=== PATIENT | female | born 1965 | race Caucasian/White ===

== ENCOUNTER → 2018-03-08 15:10 | Outpatient (CLI) | payer OTHER, SELFPAY ==
[2018-03-08 18:27] LABS: Estradiol 43.1 pg/mL
== END ==
PROVIDERS: Visit Provider Obstetrics & Gynecology
DX: N93.8 Other specified abnormal uterine and vaginal bleeding (principal)
CPT/HCPCS: 36415; 82670; 84144

== ENCOUNTER → 2018-06-27 17:22 | Outpatient (CLI) | payer OTHER, SELFPAY ==
[2018-06-27 18:08] LABS: Estradiol 134.1 pg/mL; Follicle Stimulating Hormone 3.5 mIU/mL
[2018-07-12 08:29] LABS: HPV Reflexed? NOT INDICATED
== END ==
PROVIDERS: Visit Provider Obstetrics & Gynecology
DX: N95.1 Menopausal and female climacteric states (principal); Z12.4 Encounter for screening for malignant neoplasm of cervix
CPT/HCPCS: 82670; 83001; 84144; 88175; G0145

== ENCOUNTER 2018-07-20 10:54 | Emergency (ER) | payer OTHER, SELFPAY ==
[2018-07-20 10:57] VITALS: BP 163/88; PULSE 70; RESP 18; TEMP 36.9; O2SAT 98; BMI 30.9
--- NOTE | 2018-07-20 11:07 | CT_ITS ---
STUDY: CT CERVICAL SPINE WITHOUT CONTRAST REASON FOR EXAM: Female, 52 years old. Head trauma due to a fall. RADIATION DOSAGE (If Supplied By Facility): CTDIvol = ( 34.39 ) mGy, DLP = ( 767.73 ) mGycm TECHNIQUE: High resolution transaxial imaging was performed without contrast material. Sagittal and coronal images were reconstructed. Individualized dose optimization techniques were used for this CT. COMPARISON: None FINDINGS: Normal craniovertebral junction. Normal anterior atlantoaxial articulation. Normal odontoid process. There is straightening of the normal cervical lordosis. Normal vertebral bodies and posterior osseous elements. C2-3: Normal endplates. Normal disc height and morphology. Normal central canal and intervertebral neuroforamina. C3-4: Normal endplates. Normal disc height and morphology. Normal central canal and intervertebral neuroforamina. C4-5: Moderate degree of disc space narrowing. Uncovertebral arthrosis. Bilateral neural foraminal stenosis. C5-6: Moderate degree of disc space narrowing. Uncovertebral arthrosis with posterior spondylosis worse on the left side. Moderate degree of left neural foraminal stenosis. C6-7: Moderate degree of disc space narrowing and spondylosis. Uncovertebral arthrosis. No significant stenosis is seen. Small cervical lymph nodes seen bilaterally. CT/Spine Cervical without Contras IMPRESSION: Multilevel degenerative changes, as described above. Electronically Signed: Lazaro Luo MD at 12:39 EDT Tel [phone], Service support ,
--- NOTE | 2018-07-20 11:07 | CT_ITS ---
STUDY: CT BRAIN WITHOUT CONTRAST REASON FOR EXAM: Female, 52 years old. Head trauma due to a fall. RADIATION DOSAGE (If Supplied By Facility): CTDIvol = ( 60.81 ) mGy, DLP = ( 998.67 ) mGycm TECHNIQUE: Transaxial CT imaging of the brain was performed without administration of intravenous contrast material. Individualized dose optimization techniques were used for this CT. COMPARISON: None. FINDINGS: Scalp hematoma overlying the right temporoparietal bone. Small amount of air is seen within the soft tissues suggestive of a possible laceration. Normal calvarium. Normal size ventricles and extra-axial spaces for the patient's age. Normal white matter tracts of the cerebral hemispheres. 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 Normal brainstem. Normal cerebellum. There is no intracranial hemorrhage. There are no findings of an acute ischemic infarction. Opacification of the frontal sinuses and ethmoid sinuses. Air-fluid levels in both maxillary sinuses. CT/Brain/Head without Contrast IMPRESSION: Sinusitis. Scalp hematoma with laceration overlying the right temporal parietal bone. Electronically Signed: Lazaro Luo MD at 12:33 EDT Tel [phone], Service support ,
[2018-07-20] MEDS: Diphth,Pertuss(Acell),Tet Vac 0.5 ML Vial IM (11:14)
[2018-07-20] MEDS: LORazepam 2 MG/ML Syringe IM (11:14)
--- NOTE | 2018-07-20 11:43 | RAD_ITS ---
STUDY: X-RAY - LUMBAR SPINE REASON FOR EXAM: Female, 52 years old. Low back pain following a fall. TECHNIQUE: 3 view(s) of the lumbar spine were obtained. COMPARISON: None FINDINGS: There is straightening of the normal lumbar lordosis. There is no substantial scoliosis. There is a normal alignment of the vertebrae. Mild degree of disc space narrowing at the L5-S1 level. Anterior spondylosis at the L3-L4 and L4-L5 levels. The soft tissue structures are unremarkable. RAD/Lumbar Spine 2 or 3 Views IMPRESSION: Degenerative changes of the spine, as detailed above. Loss of the normal lumbar lordosis. Electronically Signed: Lazaro Luo MD at 12:35 EDT Tel [phone], Service support ,
--- NOTE | 2018-07-20 13:05 | ED.DCSUM_ITS ---
- ER Visit Summary Date of Service: 07/20/18 Chief Complaint: [] History of Present Illness: The patient is a 52 F [] Physical Examination: [] Test Results: [] Emergency Department Course and Treatment: [] Treatment Plan: [] Disposition: [] Impression: [] This note was generated with [employer] dictation software. It may contain incorrect words, spelling, and punctuation that were not noted in review of the chart prior to signing ED Disposition - Plan for ED Patient: Chief Complaint: Fall Instructions: ED Concussion, ED Laceration Scalp Sutr Stap Ch, ED Low Back Pain Injury Prescriptions: Tizanidine HCl [Zanaflex] 4 mg PO TID #30 tablet Referrals: Jacky Ramsey [Primary Care Provider] - 7 Days for suture removal
[2018-07-20 13:12] VITALS: BP 126/86; PULSE 67; RESP 18; O2SAT 94
== END 2018-07-20 13:15 | disposition home or self-care (01) ==
LOC: ED 11:57
PROVIDERS: Emergency Provider Emergency Medicine; Family Provider Family Medicine; PCP Family Medicine
DX: S06.0X0A Concussion without loss of consciousness, initial encounter (principal); S01.01XA Laceration without foreign body of scalp, initial encounter; S30.0XXA Contusion of lower back and pelvis, initial encounter; S13.4XXA Sprain of ligaments of cervical spine, initial encounter; R40.2410 Glasgow coma scale score 13-15, unspecified time; W01.198A Fall on same level from slipping, tripping and stumbling with subsequent striking against other object, initial encounter; Y93.9 Activity, unspecified; Y92.9 Unspecified place or not applicable; F41.9 Anxiety disorder, unspecified; Z79.899 Other long term (current) drug therapy
CPT/HCPCS: 12002; 70450; 72100; 72125; 90471; 90715; 96372; 99284

== ENCOUNTER → 2018-08-09 15:10 | Outpatient (CLI) | payer OTHER, SELFPAY ==
--- NOTE | 2018-08-09 15:12 | BI_ITS ---
MAMMOGRAPHY - BILATERAL SCREENING REASON FOR EXAM: Female, 52 years old. Routine annual screening examination. PERTINENT HISTORY: Non-contributory. TECHNIQUE: Digital bilateral breast emilia (3D mammographic acquisition) in the CC and MLO projections. 2-D mediolateral oblique (MLO) and craniocaudad (CC) views of both breasts were obtained. CAD: Full Field Digital Mammography with Computer Added Detection was performed. COMPARISON: Comparison is made with prior examination dated February 19, 2016 and December 23, 2014. FINDINGS: Breast Composition: The breasts are heterogeneously dense, which may obscure small masses. There are no dominant masses or suspicious calcifications. No other significant abnormalities are identified. There has been no significant change since the prior study. BI/SCREENING MAMM (CAD), BILAT IMPRESSION: Stable bilateral screening mammogram. Yearly follow-up mammogram recommended. (A) ASSESSMENT CATEGORY: BIRADS Category 1: Negative. A letter regarding these results will be sent to the patient by the facility within 30 days. Approximately 10% of breast cancers are not detected by mammography. A normal mammogram should not delay biopsy of a clinically suspicious abnormality. [id number] Electronically Signed: Lazaro Luo MD at 11:32 EDT Tel [phone], Service support ,
== END ==
PROVIDERS: Family Provider Family Medicine; PCP Family Medicine; Visit Provider Obstetrics & Gynecology
DX: Z12.31 Encounter for screening mammogram for malignant neoplasm of breast (principal)
CPT/HCPCS: 77063; 77067

== ENCOUNTER → 2019-07-03 | Outpatient (CLI) | payer OTHER, SELFPAY ==
[2019-07-16 11:12] LABS: HPV APTIMA, High Risk Negative (Negative)
== END | disposition home or self-care (01) ==
LOC: LABSPEC 16:41
PROVIDERS: Visit Provider Obstetrics & Gynecology
DX: Z12.4 Encounter for screening for malignant neoplasm of cervix (principal)
CPT/HCPCS: 87624; 88175; G0145

== ENCOUNTER → 2019-08-12 15:04 | Outpatient (CLI) | payer OTHER, SELFPAY ==
--- NOTE | 2019-08-12 15:07 | BI_ITS ---
MAMMOGRAPHY - BILATERAL SCREENING REASON FOR EXAM: Female, 53 years old. Routine annual screening examination. PERTINENT HISTORY: Non-contributory. TECHNIQUE: Digital bilateral breast megan (3D mammographic acquisition) in the CC and MLO projections. 2-D mediolateral oblique (MLO) and craniocaudad (CC) views of both breasts were obtained. CAD: Full Field Digital Mammography with Computer Added Detection was performed. COMPARISON: Comparison is made with prior examination August 09, 2018 and February 19, 2016. FINDINGS: Breast Composition: The breasts are heterogeneously dense, which may obscure small masses. There are no dominant masses or suspicious calcifications. No other significant abnormalities are identified. There has been no significant change since the prior study. BI/SCREEN MAMM (CAD) W/MEGAN BILAT IMPRESSION: Stable bilateral screening mammogram. Yearly follow-up mammogram recommended. (A) ASSESSMENT CATEGORY: BIRADS Category 1: Negative. A letter regarding these results will be sent to the patient by the facility within 30 days. Approximately 10% of breast cancers are not detected by mammography. A normal mammogram should not delay biopsy of a clinically suspicious abnormality. [id number] Electronically Signed: Lazaro Luo, at 8:22 EDT , Service support ,
== END ==
PROVIDERS: Family Provider Family Medicine; PCP Family Medicine; Referring Provider Obstetrics & Gynecology; Visit Provider Obstetrics & Gynecology
DX: Z12.31 Encounter for screening mammogram for malignant neoplasm of breast (principal)
CPT/HCPCS: 77063; 77067

== ENCOUNTER 2019-08-14 09:33 | Emergency (ER) | payer OTHER, SELFPAY ==
[2019-08-14 09:34] VITALS: BP 166/78; PULSE 99; RESP 26; TEMP 36.6; O2SAT 98; BMI 27.9
--- NOTE | 2019-08-14 09:50 | RAD_ITS ---
STUDY: X-RAY CHEST REASON FOR EXAM: Female, 53 years old. Asthma attack. TECHNIQUE: PA and lateral views of the chest. COMPARISON: September 26, 2014. FINDINGS: Cardiac silhouette unremarkable. Pulmonary vascularity unremarkable. Aorta unremarkable. No focal patchy airspace opacities. No pleural effusions. Slightly coarse lung markings. Upper abdomen unremarkable. Osseous structures intact. No pneumothorax. Mild degenerative changes at the shoulders. RAD/Chest PA and Lateral IMPRESSION: No acute cardiopulmonary findings Mild bronchitis/asthma Electronically Signed: Joaquín Mondragon DO at 11:34 EDT Tel , Service support ,
--- NOTE | 2019-08-14 09:53 | ED.VISSUMM ---
- ER Visit Summary Date of Service: 08/14/19 Chief Complaint: Shortness of breath History of Present Illness: The patient is a 53 F who presents emergency department shortness of breath. Patient states she has a history of asthma and has been battling an asthma flare, URI, and seasonal/environmental allergies. She states she is currently on day 3 of prednisone but is unsure how much she is taking. (We called her pharmacy and [place] and she is currently on 60 mg and will begin tapering to 40 mg tomorrow.) She has been using her inhaler 3-4 times per day. She recently discontinued Advair and a week ago begin Breo. She states that her last visit with her primary care doctor they discussed the possibility of seeing pulmonology. 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 Eventually she started to have significant anxiety which did not help her breathing. She states that she has had the occasional small thick amount of phlegm come up. No fevers. Physical Examination: Afebrile vital signs are stable Gen: Well-nourished well-developed Head: Normocephalic atraumatic Eyes: Perrl EOMI ENT: TMs clear turbinate edema moist mucous membranes Neck: Supple no lymphadenopathy no JVD nontender CVS: Regular rate rhythm no murmurs normal S1-S2 Respiratory: No distress bilateral expiratory wheeze chest nontender Abdomen: Soft nontender nondistended normal bowel sounds no masses Back: Nontender Extremity: Nontender no edema Skin: Normal color no rash Neuro: alert orientated ?3 CN II-XII intact normal strength sensation Psych: Normal affect normal mood Test Results: Chest x-rays obtained. This is negative for infiltrate or pneumothorax/pleural effusion. Emergency Department Course and Treatment: Patient received a DuoNeb. Her lung sounds are improved. She is asked for something different for cough. She is currently on Tessalon will discontinue that. I will write for some guaifenesin with codeine. She is asked for referral to pulmonary medicine Dr. Schafer is on-call today. Impression: 1. Asthma exacerbation This note was generated with [employer] dictation software. It may contain incorrect words, spelling, and punctuation that were not noted in review of the chart prior to signing ED Disposition - Plan for ED Patient: Disposition: Home or Assisted Living Instructions: ASTHMA, Acute (Adult) Prescriptions: Guaifenesin/Codeine [Robitussin AC] 5 ml PO Q6H PRN PRN 5 Days #100 udc PRN Reason: Cough Prescription Printed Referrals: Wily Schafer MD [STAFF PHYSICIAN] - (call today to arrange follow up)
[2019-08-14 10:03] VITALS: PULSE 89; RESP 16
[2019-08-14] MEDS: Ipratropium/Albuterol Sulfate 3 ML AMPUL.NEB INHALATION (10:03)
[2019-08-14 11:20] VITALS: PULSE 87; RESP 18; O2SAT 96
--- NOTE | 2019-08-14 11:20 | ED.RN ---
DISCHARGE INSTRUCTIONS GIVEN TO AND REVIEWED WITH PATIENT, PATIENT DENIES QUESTIONS OR CONCERNS AND VOICES UNDERSTANDING OF DISCHARGE INSTRUCTIONS. PT AMBULATES OUT OF ROOM WITHOUT DIFFICULTY.
== END 2019-08-14 11:25 | disposition home or self-care (01) ==
PROVIDERS: Emergency Provider Emergency Medicine; Family Provider Family Medicine; PCP Family Medicine
DX: J45.901 Unspecified asthma with (acute) exacerbation (principal); F41.9 Anxiety disorder, unspecified
CPT/HCPCS: 71046; 94640; 99282

== ENCOUNTER → 2019-10-10 06:48 | Outpatient (CLI) | payer OTHER, SELFPAY ==
[2019-10-04 06:17] VITALS: BMI 27.8
--- NOTE | 2019-10-10 10:11 | PFTCOMP ---
COMPLETE PULMONARY FUNCTION TEST INTERPRETATION Brief HPI: Patient is a 53 year old female, currently under the care of myself, who presents to [facility] for complete pulmonary function tests secondary to diagnosis of cough. Respiratory therapist reports good effort and reproducible results. Interpretation: Forced expiration spirometry shows no large airways obstructive ventilatory defect with an FEV1 of 117% predicted. There is no significant bronchodilator response by strict ATS criteria. Spirograms are of good quality and plateau normally. The respiratory flow volume loop shows a normal pattern. Lung volumes by body plethysmography show a normal total lung capacity at 5.37 L, 109% predicted. All other lung volumes are within normal limits. Diffusion capacity by carbon monoxide is normal at 96% predicted. The airway resistance is normal. No previous pulmonary function tests were available for review. Impression: These pulmonary function tests are within normal limits.
== END ==
PROVIDERS: Family Provider Family Medicine; PCP Family Medicine; Referring Provider Internal Medicine Critical Care Medicine; Visit Provider Internal Medicine Critical Care Medicine
DX: R05 Cough (principal)
CPT/HCPCS: 94060; 94726; 94729

== ENCOUNTER → 2019-11-04 06:40 | Outpatient (CLI) | payer OTHER, SELFPAY ==
[2019-10-22 06:20] VITALS: BMI 28.3
--- NOTE | 2019-11-04 09:27 | CPS ---
Pt dropped to 88% at end of 6 minutes. Pt does not wear O2 at home. Dr Schafer was called and made aware.
--- NOTE | 2019-11-04 14:57 | BRONCHALL ---
Bronchoprovocation Challenge - Bronchoprovocation Challenge Bronchoprovocation Challenge: BRONCHOPROVOCATION STUDY INTERPRETATION Brief HPI: Patient is a 53 year old female, currently under the care of myself, who presents to [facility] for a bronchoprovocation study secondary to diagnosis of chronic cough. Respiratory therapist reports good effort and reproducible results. Interpretation: Initial spirometry showed no large airways obstructive ventilatory defect. The patient was then given increasingly concentrated doses of methacholine in a stepwise fashion, using a modified ATS protocol. The patient?s maximum reduction in FEV1 was 10 percent predicted. Impression: Negative Bronchoprovocation study. This is NOT consistent with the diagnosis of asthma.
== END ==
PROVIDERS: Family Provider Family Medicine; PCP Family Medicine; Referring Provider Internal Medicine Critical Care Medicine; Visit Provider Internal Medicine Critical Care Medicine
DX: R05 Cough (principal)
CPT/HCPCS: 94070; 95070; J3490; J7674

== ENCOUNTER → 2019-12-03 16:03 | Outpatient (CLI) | payer OTHER, SELFPAY ==
[2019-12-03 15:10] VITALS: BMI 27.8
[2019-12-03 16:47] LABS: Absolute Lymphocyte Count 1.65 X10^3/uL (0.83-4.51); Basophil# 0.04 X10^3/uL; Basophil% 0.7 % (0-1); Eosinophil# 0.04 X10^3/uL; Eosinophils% 0.7 % (0-5); Hematocrit 38.7 % (37-47); Lymphocyte # 1.65 X10^3/ul (4.0); Lymphocyte % 27.1 % (19-41); Mean Corp Hgb Conc 33.6 g/dL (32-36); Mean Corpuscular Hgb 29.6 pg (27.0-32.0); Mean Corpuscular Volume 88.2 fL (81-99); Mean Platelet Vol. 10.5 fl (6.2-12.0); Monocyte# 0.34 X10^3/uL; Monocyte% 5.6 % (0-10); NRBC Flagged by Analyzer 0 % (0-5); Neutrophil % 65.6 % (47-70); Platelet Count 321 K/mm3 (150-450); RBC Distribution Width CV 12.7 % (11.6-14.6); Red Blood Count 4.39 M/mm3 (4.2-5.4); White Blood Count 6.1 K/mm3 (4.4-11.0)
[2019-12-07 03:07] LABS: Alternaria alternata <0.10 kU/L (Class 0); Bermuda Grass <0.10 kU/L (Class 0); Bluegrass, Kentucky <0.10 kU/L (Class 0); Cat Hair/Dander, Standard <0.10 kU/L (Class 0); D farinae Mite <0.10 kU/L (Class 0); D pteronyssinus <0.10 kU/L (Class 0); Dog Epithelia <0.10 kU/L (Class 0); Elm, American White <0.10 kU/L (Class 0); Oak, White <0.10 kU/L (Class 0); Plantain, English <0.10 kU/L (Class 0); Ragweed, Short/Common <0.10 kU/L (Class 0)
[2019-12-07 20:07] LABS: Aspirgillus flavus Negative (Neg:<1:1); Aspirgillus fumigatus Negative (Neg:<1:1); Aspirgillus niger Negative (Neg:<1:1)
[2019-12-09 11:48] LABS: Immunoglobulin E 2 IU/mL (6-495)
[2019-12-09 11:51] LABS: Mouse Urine <0.10 kU/L (Class 0)
== END ==
PROVIDERS: PCP Family Medicine; Referring Provider Nurse Practitioner Acute Care; Visit Provider Nurse Practitioner Acute Care
DX: J45.909 Unspecified asthma, uncomplicated (principal); R05 Cough
CPT/HCPCS: 36415; 82785; 85025; 86003; 86606

== ENCOUNTER → 2020-02-18 13:40 | Outpatient (CLI) | payer OTHER, SELFPAY ==
[2019-12-03 15:10] VITALS: BMI 27.8
--- NOTE | 2020-02-18 13:42 | CT_ITS ---
STUDY: CT CHEST WITHOUT CONTRAST REASON FOR EXAM: Female, 54 years old. BRONCHIECTASIS RADIATION DOSAGE (If Supplied By Facility): CTDIvol = ( 9.46 ) mGy, DLP = ( 316.67 ) mGycm TECHNIQUE: Transaxial imaging was performed without the administration of intravenous contrast material. Multiplanar coronal and sagittal images were reformatted. Individualized dose optimization techniques were used for this CT. COMPARISON: Comparison is made with prior chest radiograph dated August 14, 2019. FINDINGS: Minimal bilateral apical scarring. There is no demonstrated pleural abnormality. Normal heart and pericardium. Normal mediastinum. Normal hilar regions. Normal unenhanced pulmonary arteries. Normal aorta arch and descending thoracic aorta. There are multi-level degenerative changes of the thoracic spine. There is no demonstrated abnormality of the visualized upper abdomen. CT/Chest without Contrast IMPRESSION: No acute abnormality is seen. Electronically Signed: Lazaro Luo, at 14:28 EDT , Service support ,
== END ==
PROVIDERS: PCP Family Medicine; Referring Provider Nurse Practitioner Acute Care; Visit Provider Nurse Practitioner Acute Care
DX: R05 Cough (principal)
CPT/HCPCS: 71250

== ENCOUNTER 2020-02-26 12:31 | Emergency (ER) | payer OTHER, SELFPAY ==
[2019-12-03 15:10] VITALS: BMI 27.8
[2020-02-26 12:33] VITALS: BP 127/91; PULSE 88; RESP 18; TEMP 36.6; O2SAT 95; BMI 27.2
--- NOTE | 2020-02-26 12:47 | ED.VIS.GEN ---
History of Present Illness Chief Complaint: Abd Pain Informant: Patient Onset: Days Narrative: Patient presents to the emergency department for the evaluation of left lower abdominal pain. Symptoms have been present and worsening for 3 days. She has chronic diarrhea but denies any bleeding. She denies any urinary symptoms. Last night her temperature was 99. She has had diverticulitis several times and has been hospitalized 3 times. She has been noting some anorexia but has been able to tolerate p.o. She called her primary care physician who recommend her come to the emergency room. Past Medical History - Allergies and Home Meds Allergies/Adverse Reactions: Allergies No Known Allergies Allergy (Verified 02/26/20 12:36) Primary Care Physician: Jacky Ramsey [Primary Care Provider] - Smoking Status: Never smoker Review of Systems General: Denies: Chills, Fever, Sweats Eyes: Denies: Visual changes - bilaterally, Diplopia ENT: Denies: Rhinorrhea, Sore throat Cardiovascular: Denies: Chest pain, Palpitations Respiratory: Denies: Dyspnea, Cough, Dyspnea on exertion Gastrointestinal: Reports: Abdominal pain, Nausea, Diarrhea. Denies: Vomiting, Constipation, Melena, Hematochezia Genitourinary: Denies: Dysuria, Hematuria, Frequency Musculoskeletal: Denies: Back pain, Extremity Pain Skin: Denies: Rash, Wounds Neurological: Denies: Headache, Weakness, Numbness Physical Exam Vital Signs/Narrative: Vital Signs Temp Pulse Resp BP Pulse Ox 02/26/20 12:33 97.8 F 88 18 127/91 H 95 Inital Vital Signs reviewed: Yes General: Well nourished, Well developed, No Acute Distress Head: Normocephalic, Atraumatic Eyes: Perrl, EOMI ENT: Moist mucous membranes, No rhinorrhea Neck: Supple, Nontender Cardiovascular: Regular rate, Regular rhythm, No murmurs Respiratory: No distress, CTA bilaterally, Chest nontender Abdomen: Soft, Nondistended, Normal bowel sounds, Tender, Guarding. Negative for: Rebound tenderness Back: Nontender, Normal Inspection Extremities: Nontender, No edema Skin: Normal color, No rash Neurological: Alert, Oriented x3, Cranial nerves II-XII grossly intact, Normal Strength, Normal Sensation Psychological: Normal affect, Normal Mood Diagnostic/Tx/Re-eval - Medical Decision Making The patient and I had shared decision making. As her vital signs are stable and she is tolerating p.o. I am going to write for her to have Cipro and Flagyl as well as pain and nausea medication. If she is not improving or has any worsening symptoms she should return to the emergency department at that time we can draw labs and perform a CT. At the time she does not have evidence of peritonitis and I think this is a very reasonable plan. ED Disposition - Plan for ED Patient: Diagnosis: Acute abdominal pain in left lower quadrant, Acute diverticulitis Instructions: ED Diverticulitis Prescriptions: Ciprofloxacin [Cipro] 500 mg PO BID #20 tab Transmission Status: Pending to [facility] metroNIDAZOLE [Flagyl] 500 mg PO Q8H #30 tab Transmission Status: Pending to [facility] Hydrocodone Bitart/Apap 5-325 [[place] 5MG-325MG] 1 tab PO Q6H PRN PRN 3 Days #12 tab PRN Reason: Pain Transmission Status: Pending to [facility] Ondansetron [Zofran Odt] 4 mg PO Q8H PRN PRN #20 tab PRN Reason: Nausea Transmission Status: Pending to [facility] Referrals: Jacky Ramsey [Primary Care Provider] - As Needed
== END 2020-02-26 13:06 | disposition home or self-care (01) ==
PROVIDERS: Emergency Provider Emergency Medicine; PCP Family Medicine
DX: K57.92 Diverticulitis of intestine, part unspecified, without perforation or abscess without bleeding (principal)
CPT/HCPCS: 99282

== ENCOUNTER → 2020-08-13 14:57 | Outpatient (CLI) | payer OTHER, SELFPAY ==
[2020-03-17 06:04] VITALS: BMI 27.6
--- NOTE | 2020-08-13 15:18 | BI_ITS ---
MAMMOGRAPHY - BILATERAL SCREENING REASON FOR EXAM: Female, 54 years old. Routine annual screening examination. PERTINENT HISTORY: Non-contributory. TECHNIQUE: Digital bilateral breast megan (3D mammographic acquisition) in the CC and MLO projections. 2-D mediolateral oblique (MLO) and craniocaudad (CC) views of both breasts were obtained. CAD: Full Field Digital Mammography with Computer Added Detection was performed. COMPARISON: Comparison is made with prior study date 08/12/2019 and 08/09/2018. FINDINGS: Breast Composition: The breasts are heterogeneously dense, which may obscure small masses. There are no dominant masses or suspicious calcifications. No other significant abnormalities are identified. There has been no significant change since the prior study. BI/SCREEN MAMM (CAD) W/MEGAN BILAT IMPRESSION: Stable bilateral screening mammogram. Yearly follow-up mammogram recommended. (A) ASSESSMENT CATEGORY: BIRADS Category 1: Negative. A letter regarding these results will be sent to the patient by the facility within 30 days. Approximately 10% of breast cancers are not detected by mammography. A normal mammogram should not delay biopsy of a clinically suspicious abnormality. [id number] Electronically Signed: Lazaro Luo, at 8:57 EDT , Service support ,
== END ==
PROVIDERS: PCP Family Medicine; Referring Provider Obstetrics & Gynecology; Visit Provider Obstetrics & Gynecology
CPT/HCPCS: 77063; 77067

== ENCOUNTER 2022-02-09 12:38 | Outpatient (CLI) | payer OTHER, SELFPAY ==
--- NOTE | 2022-02-09 12:41 | BI_ITS ---
MAMMOGRAPHY - BILATERAL SCREENING REASON FOR EXAM: Female, 56 years old. Routine annual screening examination. PERTINENT HISTORY: Non-contributory. TECHNIQUE: Digital bilateral breast megan (3D mammographic acquisition) in the CC and MLO projections. 2-D mediolateral oblique (MLO) and craniocaudad (CC) views of both breasts were obtained. CAD: Full Field Digital Mammography with Computer Added Detection was performed. COMPARISON: Comparison is made with prior examination dated 08/13/2020 and 08/12/2019. FINDINGS: Breast Composition: The breasts are heterogeneously dense, which may obscure small masses. There are no dominant masses or suspicious calcifications. No other significant abnormalities are identified. There has been no significant change since the prior study. BI/SCRN MAMM (CAD)W/MEGAN BILAT IMPRESSION: Stable bilateral screening mammogram. Yearly follow-up mammogram recommended. (A) ASSESSMENT CATEGORY: BIRADS Category 1: Negative. A letter regarding these results will be sent to the patient by the facility within 30 days. Approximately 10% of breast cancers are not detected by mammography. A normal mammogram should not delay biopsy of a clinically suspicious abnormality. [id number] Electronically Signed: Lazaro Luo MD at 13:58 EDT ,
== END 2022-02-09 23:59 | disposition home or self-care (01) ==
LOC: OPBI 12:38
PROVIDERS: PCP Family Medicine; Visit Provider Obstetrics & Gynecology
DX: Z12.31 Encounter for screening mammogram for malignant neoplasm of breast (principal)
CPT/HCPCS: 77063; 77067

== ENCOUNTER 2022-06-16 15:43 | Emergency (ER) | payer OTHER, SELFPAY ==
[2022-06-16 15:43] VITALS: BP 122/94; PULSE 110; RESP 18; TEMP 36.2; O2SAT 97; BMI 29.5
--- NOTE | 2022-06-16 16:05 | CT_ITS ---
STUDY: CT ABDOMEN AND PELVIS WITHOUT CONTRAST REASON FOR EXAM: Female, 56 years old. llq abdominal pain WITH HISTORY OF DIVERTICULITIS RADIATION DOSAGE (If Supplied By Facility): CTDIvol = ( 10.23 ) mGy, DLP = ( 493.72 ) mGycm TECHNIQUE: Transaxial images were obtained from the dome of the diaphragm to the symphysis pubis without oral contrast, and without intravenous contrast. Sagittal and coronal images were reconstructed. Individualized dose optimization techniques were used for this CT. COMPARISON: None. FINDINGS: The visualized lung bases are unremarkable. The visualized portions of the heart are within normal limits. Normal liver. Normal gallbladder and extrahepatic biliary system. Normal spleen. Normal pancreas. Normal bilateral adrenal glands. Normal right kidney. 5 mm nonobstructing stone in the midsection of left kidney. No hydronephrosis, ureteral stone, ureteral dilatation. Normal visualized stomach. Normal small intestine. There is diverticulosis, with thickening of the colon wall, and pericolonic inflammation changes consistent with acute diverticulitis. No loculated fluid collection to suggest abscess. No pneumoperitoneum to suggest perforation. The appendix is visualized and appears normal. Normal abdominal aorta. Normal inferior vena cava. Normal retroperitoneum. Normal urinary bladder. Normal abdominal wall. Normal osseous structures. CT/Abdomen/Pelvis without Cont IMPRESSION: Sigmoid diverticulitis without abscess or perforation. Electronically Signed: Jh Tracey MD at 16:53 EDT ,
--- NOTE | 2022-06-16 16:06 | ED.VIS.GI ---
HPI HPI - GI History of Present Illness Chief Complaint: Abd Pain Informant: patient Narrative Narrative: Progressive suprapubic left lower quadrant abdominal pain since yesterday. No nausea or vomiting. No fevers. 2 bowel movements today with no blood. History of multiple diverticulitis in the past however last time 2012 he had a follow-up colonoscopy from that. Denies urinary symptoms. History of kidney stones also however states feels more like her diverticulitis. Reports pain worse with walking. She came here from work lives in [facility]. Prior similar symptoms: Yes PFSH PFS Medical History (Updated 06/16/22 @ 17:[address] Robb Nieves, DO) Asthma Diverticulitis History of kidney stones History of pneumonia Home Medications progesterone micronized 100 mg capsule 300 mg PO DAILY 09/26/14 [History Last Taken Unknown] albuterol sulfate 90 mcg/actuation aerosol inhaler 1 - 2 puff inhalation Q4H PRN PRN Sob &/Or Wheezing 07/20/18 [History Last Taken Unknown] fish oil-dha-epa 1,200 mg-144 mg-216 mg capsule 1 ea PO DAILY 07/20/18 [History Last Taken Unknown] montelukast 10 mg tablet 10 mg PO DAILY 07/20/18 [History Last Taken Unknown] fluticasone propionate 50 mcg/actuation nasal spray,suspension 2 spray intranasal DAILY #16 grams 10/04/19 [Rx Last Taken Unknown] lorazepam 1 mg tablet (Ativan) 1 mg PO Q4H PRN anxiety 10/04/19 [History Last Taken Unknown] metronidazole 500 mg tablet 500 mg PO Q8H #30 tabs 02/26/20 [Rx Last Taken Unknown] ondansetron 4 mg disintegrating tablet 4 mg PO Q8H PRN PRN Nausea #20 tabs 02/26/20 [Rx Last Taken Unknown] fluticasone furoate 200 mcg-vilanterol 25 mcg/dose inhalation powder (Breo Ellipta) 1 inh inhalation DAILY #3 device 03/17/20 [Rx Last Taken Unknown] cefdinir 300 mg capsule 300 mg PO BID #19 caps 06/16/22 [Rx Last Taken Unknown] metronidazole 500 mg tablet 500 mg PO TID 10 days #30 tabs 06/16/22 [Rx Last Taken Unknown] Allergy/AdvReac Type Severity Reaction Status Date / Time No Known Allergies Allergy Verified 03/17/20 14:10 Family History Father COPD (chronic obstructive pulmonary disease) CHF (congestive heart failure) Rheumatoid arthritis Osteoarthritis Diverticulitis Ankylosing spondylitis Mother Hypertension Tremor Diverticulitis Surgical History History of tubal ligation Hx of nephrolithotomy with removal of calculi Myringotomy tube status Nasal Polyp Removal Social History Smoking Status: Never smoker second hand exposure: Yes ROS ROS ED Constitutional Constitutional ED: Denies chills, fever(s) or sweats Eyes Eyes: Denies change in vision ENT ENT ED: Denies dysphagia or sore throat Cardiovascular Cardiovascular: Denies chest pain, leg edema, palpitations or racing heartbeat Respiratory/Chest Respiratory/Chest: Denies cough, dyspnea or dyspnea on exertion Gastrointestinal Gastrointestinal: Reports abdominal pain; Denies diarrhea, nausea or vomiting Genitourinary Genitourinary ED: Denies dysuria, hematuria or urinary frequency Musculoskeletal Musculoskeletal: Denies back pain, extremity pain or neck pain Integumentary Denies rash or wounds Neurologic Neurologic: Denies headache(s), paresthesias or weakness EXAM Physical Exam Const Vital Signs: 06/16/22 15:43 06/16/22 15:43 06/16/22 18:17 Temperature 97.2 F L 97.2 F L Temperature Source Temporal Temporal Pulse Rate 110 H 110 H Respiratory Rate 18 18 Blood Pressure 122/94 H 122/94 H 126/88 H Blood Pressure Mean 103 103 Pulse Ox 97 97 95 Oxygen Delivery Method Room Air Room Air Positive well nourished and well developed Constitutional Narrative: Uncomfortable, rocking in bed, nontoxic. General Appearance ED: well developed HEENT Reports moist mucous membranes normocephalic and atraumatic Eyes PERRL, EOMs intact bilaterally and conjunctivae normal General Eye ED: Yes normal appearance of both eyes Neck no lymphadenopathy and supple General: Negative for tenderness Chest Wall Chest: Negative for tenderness Resp normal respiratory effort and normal air movement Effort and Inspection: symmetric chest movement; Negative for respiratory distress Cardio regular rate, regular rhythm and no murmurs Rate: tachycardic Peripheral Pulses: pulses 2+ throughout GI normal to inspection, nondistended, normoactive bowel sounds GI Narrative: Suprapubic, left lower quadrant abdominal pain without guarding or rebound. Negative Chacon's or McBurney's tenderness. Palpation: Negative for guarding or rebound tenderness present Back/Spine no CVA tenderness and no thoracic nor lumbar tenderness Extremity normal to inspection General Extremety ED: Negative for edema or tenderness General Extremity: Negative for edema Neuro oriented x3 and no sensory deficits noted Sensorium / Orientation: awake and alert Skin no rashes or lesions noted and no wounds MDM MDM MDM Narrative Medical decision making narrative: Patient tender suprapubic left lower quadrant there is no guarding or rebound. Clinically diverticulitis concerns with her history. Lab work obtained white count 9.4 creatinine 0.8. Urine noted blood and leukocytes. Patient without urine symptoms. CT scan negative for urolithiasis noted nephrolithiasis however noted also an uncomplicated sigmoid diverticulitis. She declined anything stronger for pain she is given Toradol. There was mild improvement of symptoms, there is no progression of her pain. She started on Omnicef and Flagyl for treatment. Discussed with patient avoiding alcohol products. She will follow-up with her PCP for referral to GI and surgery as an outpatient for multiple events in the past. Strict return precautions. All questions were answered. Lab Data Attestation: I reviewed the patient's lab results. Labs: Laboratory Results - last 24 hr 06/16/22 06/16/22 06/16/22 16:00 16:00 16:52 WBC 9.4 RBC 4.25 Hgb 12.5 Hct 36.9 L MCV 86.8 MCH 29.4 MCHC 33.9 RDW Std Deviation 40.3 RDW Coeff of Mary [place] 12.8 Plt Count 245 MPV 10.5 Immature Gran % (Auto) 0.300 Neut % (Auto) 79.8 H Lymph % (Auto) 12.1 L [place] % (Auto) 7.4 Eos % (Auto) 0.2 Baso % (Auto) 0.2 Absolute Neuts (auto) 7.5 Absolute Lymphs (auto) 1.13 Nucleated RBC % 0 Sodium 139 Potassium 3.7 Chloride 106 Carbon Dioxide 25.0 Anion Gap 8 BUN 17 Creatinine 0.80 Estim Creat Clear Calc 67.00 Est GFR (MDRD) Af Amer 95 Est GFR (MDRD) Non-Af 79 BUN/Creatinine Ratio 21.3 H Glucose 104 Calcium 8.9 Urine Color Yellow Urine Clarity Clear Urine pH 6.0 Ur Specific [place] 1.020 Urine Protein 15 H Urine Glucose (UA) Normal Urine Ketones 50 H Urine Occult Blood 250 H Urine Nitrite Negative Urine Bilirubin Negative Urine Urobilinogen Normal Ur Leukocyte Esterase 25 H Urine RBC 5-10 SEEN Urine WBC 0-5 SEEN Ur Squamous Epith Cells 0-5 SEEN Urine Bacteria 1+ Urine Mucus 0 SEEN Radiography Diagnostic Testing: Clinical Impression(s) from Imaging Studies Abdomen/Pelvis CT 06/16/22 16:05 IMPRESSION: Sigmoid diverticulitis without abscess or perforation. Electronically Signed: Jh Tracey MD at 16:53 EDT , Discharge Plan Triage Chief Complaint: Abd Pain ED Provider: Robb Nieves Dx/Rx/DC Orders Clinical Impression: Diverticulitis of sigmoid colon, Abdominal pain, LLQ, History of diverticulitis Instructions: Diverticulitis Dc Prescriptions: New cefdinir 300 mg capsule 300 mg PO BID Qty: 19 0RF metronidazole 500 mg tablet 500 mg PO TID 10 Days Qty: 30 0RF No Action lorazepam [Ativan] 1 mg tablet 1 mg PO Q4H PRN (Reason: anxiety) fluticasone propionate 50 mcg/actuation spray,suspension 2 spray INTRANASAL DAILY Qty: 16 3RF Rx Instructions: administer into each nostril Breo Ellipta 200-25 mcg/dose blister with device 1 inh INHALATION DAILY Qty: 3 3RF progesterone micronized 100 MG capsule 300 mg PO DAILY Label Comments: DAYS 11-27 OF CYCLE montelukast 10 MG tablet 10 mg PO DAILY albuterol sulfate 1 PUFF inhaler 1 - 2 puff inhalation Q4H PRN PRN (Reason: Sob &/Or Wheezing) fish oil-dha-epa 1 EACH capsule 1 ea PO DAILY metronidazole 500 MG tablet 500 mg PO Q8H Qty: 30 0RF ondansetron 4 MG tablet 4 mg PO Q8H PRN PRN (Reason: Nausea) Qty: 20 0RF Primary Care Provider: Jacky Ramsey Referrals: Jacky Ramsey DO [Primary Care Provider] - 3-5 Days Activity Restrictions/Additional Instructions: Uncomplicated sigmoid diverticulitis on CT. White count 9. Take antibiotic as prescribed. Avoid alcohol while taking Flagyl. Follow-up with your doctor for referral to GI and surgery as an outpatient. Return if any worsening symptoms. Disposition Disposition: Home, Self Care Discharge Date/Time: 06/16/22 18:18
[2022-06-16] MEDS: 0.9% Normal Saline 1,000 ML 1000 ML IV (16:13)
[2022-06-16] MEDS: Ketorolac 15 MG/ML Vial IV (16:13)
[2022-06-16 16:14] LABS: Absolute Lymphocyte Count 1.13 X10^3/uL (0.83-4.51); Absolute Neutrophil Count 7.5 X10^3/uL (2.0-7.7); Basophil# 0.02 X10^3/uL; Basophil% 0.2 % (0-1); Eosinophil# 0.02 X10^3/uL; Eosinophils% 0.2 % (0-5); Hematocrit 36.9 % (37-47); Hemoglobin 12.5 g/dL (12.0-15.0); Lymphocyte # 1.13 X10^3/ul (0.83-4.51); Lymphocyte % 12.1 % (19-41); Mean Corp Hgb Conc 33.9 g/dL (32-36); Mean Corpuscular Hgb 29.4 pg (27.0-32.0); Mean Corpuscular Volume 86.8 fL (81-99); Mean Platelet Vol. 10.5 fl (6.2-12.0); Monocyte# 0.69 X10^3/uL; Monocyte% 7.4 % (0-10); NRBC Flagged by Analyzer 0 % (0-5); Neutrophil # 7.48 X10^3/uL (2.7-7.7); Neutrophil % 79.8 % (47-70); Platelet Count 245 K/mm3 (150-450); RBC Distribution Width CV 12.8 % (11.6-14.6); RBC Distribution Width SD 40.3 fl (35.1-43.9); Red Blood Count 4.25 M/mm3 (4.2-5.4); White Blood Count 9.4 K/mm3 (4.4-11.0)
[2022-06-16 16:27] LABS: Anion Gap 8 (5-15); BUN 17 mg/dL (7-18); BUN/Creat Ratio 21.3 RATIO (10-20); Calcium,Total 8.9 mg/dL (8.5-10.1); Chloride 106 mmol/L (98-107); EST Glomerular Filtration Rate 79 mL/min (>60); Est Glom Filt Rate - Afr Amer 95 mL/min (>60); Glucose 104 mg/dL (74-106); Potassium 3.7 mmol/L (3.5-5.1); Sodium Level 139 mmol/L (136-145)
[2022-06-16 17:03] LABS: Mucous, Urine 0 SEEN /hpf (<or=2+)
[2022-06-16 17:06] LABS: Color, Urine Yellow (Yellow); Glucose, Dipstick Normal (Normal); Ketone-Dipstick 50 mg/dl (Negative); Leukocyte Esterase-Dipstick 25 /ul (Negative); Nitrite-Dipstick Negative (Negative); Occult Blood-Urine 250 /ul (Negative); Protein-Dipstick 15 mg/dl (Negative); Urine Bilirubin Dipstick Negative (Negative); Urine Clarity Clear (Clear); Urine Urobilinogen Normal (Normal)
[2022-06-16 17:24] LABS: Red Blood Cells-Urine 5-10 SEEN /hpf (0-5); Squamous Epithelial Cells - UA 0-5 SEEN /hpf (5-10); White Blood Cells 0-5 SEEN /hpf (0-5)
[2022-06-16 17:25] LABS: Bacteria 1+ /hpf (None Seen)
[2022-06-16] MEDS: metroNIDAZOLE 500 MG Tablet PO (17:40)
[2022-06-16] MEDS: Cefdinir 300 MG Capsule PO (18:11)
[2022-06-16 18:17] VITALS: BP 126/88; O2SAT 95
== END 2022-06-16 18:18 | disposition home or self-care (01) ==
PROVIDERS: Emergency Provider Emergency Medicine; PCP Family Medicine; Visit Provider Emergency Medicine
DX: K57.32 Diverticulitis of large intestine without perforation or abscess without bleeding (principal); J45.909 Unspecified asthma, uncomplicated; Z87.442 Personal history of urinary calculi; Z87.19 Personal history of other diseases of the digestive system
CPT/HCPCS: 74176; 80048; 81001; 85025; 96361; 96374; 99284; J7030; A4216

== ENCOUNTER → 2022-07-28 | Outpatient (CLI) | payer OTHER, SELFPAY ==
--- NOTE | 2022-07-28 12:44 | MRI_ITS ---
STUDY: MRI RIGHT SHOULDER REASON FOR EXAM: Right shoulder pain and limited range of motion for 6 months, rotator cuff repair in 2017. TECHNIQUE: Standardized fat and water weighted pulse sequences were obtained in all 3 orthogonal planes. COMPARISON: None. FINDINGS: There is postoperative scarring of the supraspinatus/infraspinatus tendons with a small low-grade partial-thickness tear of the articular surface of the distal supraspinatus tendon (T2 coronal image 11) measuring 0.35 cm in length with delamination (T2 coronal image 10). There is a small intrasubstance partial-thickness tear of the distal superior fibers of the subscapularis tendon with medial dislocation of the proximal extracapsular long biceps tendon (proton-density axial images 11, 12). Normal teres minor tendon. There is mild atrophy with mild partial fat replacement of the supraspinatus and infraspinatus muscles (T2 sagittal images 17-19). Normal subscapularis muscle. Normal teres minor muscle. There is mild glenohumeral arthrosis with small marginal osteophytes of the humeral head and mild chondral thinning (T2 coronal image 10). There is a small glenohumeral joint effusion. There is an anchor in the humeral head. Normal biceps labral complex. Normal labrum. Normal capsulo- ligamentous complex. Status post subacromial decompression/excision of the distal clavicle. There is a small volume of subacromial-subdeltoid bursal fluid. Normal deltoid muscle. Normal trapezius muscle. MRI/Upper Ext Joint Only(Routine) IMPRESSION: Small low-grade partial-thickness tear of the supraspinatus tendon and postoperative scarring of the supraspinatus/infraspinatus tendons. Small intrasubstance partial-thickness tear of the subscapularis tendon with medial dislocation of the proximal extracapsular long biceps tendon. Mild atrophy of the supraspinatus and infraspinatus muscles. Mild glenohumeral arthrosis. Mild subacromial-subdeltoid bursitis. Small glenohumeral joint effusion. Electronically Signed: Oswald Rondon MD at 13:53 EDT ,
== END | disposition home or self-care (01) ==
PROVIDERS: PCP Family Medicine; Referring Provider Physician Assistant; Visit Provider Physician Assistant
DX: M75.41 Impingement syndrome of right shoulder (principal)
CPT/HCPCS: 73221

== ENCOUNTER → 2022-10-12 | Outpatient (CLI) | payer OTHER, SELFPAY ==
[2022-10-25 16:52] LABS: HPV APTIMA, High Risk Negative (Negative)
== END | disposition home or self-care (01) ==
LOC: LABSPEC 14:58
PROVIDERS: PCP Family Medicine; Visit Provider Student in an Organized Health Care Education/Training Program
DX: Z12.4 Encounter for screening for malignant neoplasm of cervix (principal)
CPT/HCPCS: 87624; 88175; G0145

== ENCOUNTER → 2023-02-10 | Outpatient (CLI) | payer OTHER, SELFPAY ==
--- NOTE | 2023-02-10 11:47 | BI_ITS ---
MAMMOGRAPHY - BILATERAL SCREENING 3-D TOMOSYNTHESIS REASON FOR EXAM: Female, 57 years old. Routine screening PERTINENT HISTORY: No significant family history. TECHNIQUE: 2-D mammograms and 3-D Tomosynthesis of the breast (s) were performed. CAD was performed. COMPARISON: 02/09/2022 FINDINGS: The breast composition is heterogeneously dense that can obscure small breast masses. Scattered benign calcifications are seen. No dense spiculated masses or suspicious microcalcifications are identified. No architectural distortion is identified. There is no skin thickening or retraction. There has been no significant change since the prior study. BI/SCRN MAMM (CAD)W/MEGAN BILAT IMPRESSION: No mammographic signs of malignancy. Routine yearly mammograms recommended. ASSESSMENT CATEGORY: BIRADS Category 2: Benign. A letter regarding these results will be sent to the patient by the facility within 30 days. FOLLOW UP RECOMMENDATION: Yearly follow up mammogram recommended. (A) Approximately 10% of breast cancers are not detected by mammography. A normal mammogram should not delay biopsy of a clinically suspicious abnormality. Electronically Signed: Quirino Lai MD at 13:01 EDT ,
== END | disposition home or self-care (01) ==
LOC: OPBI 11:45
PROVIDERS: PCP Family Medicine; Referring Provider Student in an Organized Health Care Education/Training Program; Visit Provider Student in an Organized Health Care Education/Training Program
DX: Z12.31 Encounter for screening mammogram for malignant neoplasm of breast (principal)
CPT/HCPCS: 77063; 77067

== ENCOUNTER 2024-03-23 10:31 | Emergency (ER) | payer OTHER, SELFPAY ==
[2024-03-23 10:31] VITALS: BP 151/94; PULSE 67; RESP 14; TEMP 36.1; O2SAT 98; BMI 27.6
--- NOTE | 2024-03-23 11:01 | CT_ITS ---
EXAM: CT ABDOMEN AND PELVIS WITHOUT INTRAVENOUS CONTRAST CLINICAL INDICATION: Pain TECHNIQUE: Helically acquired images were obtained of the abdomen and pelvis without intravenous contrast. This CT exam was performed using one or more of the following dose reduction techniques: automated exposure control, adjustment of the mA and/or kV according to patient size, and/or use of iterative reconstruction technique. COMPARISON: CT Abdomen Pelvis dated 06/16/2022 FINDINGS: LOWER THORAX: Normal. Lung bases are clear. No cardiomegaly. No pericardial effusion. ABDOMEN: LIVER: Normal. Homogeneous. GALLBLADDER AND BILE DUCTS: Normal-appearing gallbladder. PANCREAS: Normal. No focal cystic mass. SPLEEN: Normal. Normal size without focal cystic or solid mass. ADRENALS: Normal. No nodules. KIDNEYS AND URETERS: 7 mm left renal pelvis stone noted associated with left hydronephrosis. STOMACH AND BOWEL: Diverticulosis of the colon noted without evidence of acute diverticulitis. PELVIS: APPENDIX: Appendix is visualized and normal in appearance. BLADDER: Normal. REPRODUCTIVE: Unremarkable as visualized. No mass. ABDOMEN and PELVIS: INTRAPERITONEAL SPACE: Normal. No ascites or other fluid collection. No free air. BONES/JOINTS: No suspicious lytic or blastic abnormality. SOFT TISSUES: Normal. No discrete abdominal or pelvic wall hernia. VASCULATURE: Normal. Abdominal aorta is non-dilated. LYMPH NODES: Normal. No enlarged lymph nodes. CT/Abdomen/Pelvis without Cont IMPRESSION: 1. Obstructive 7 mm left renal pelvis stone. 2. Diverticulosis coli. Electronically Signed: Kasi Macias MD at 12:26 EDT ,
--- NOTE | 2024-03-23 11:02 | EDS_ITS ---
HPI HPI - GI History of Present Illness Chief Complaint: Flank Pain Detail of Chief Complaint: Left flank pain since 8 AM this morning. Informant: patient and spouse/S.O. Abdominal Pain/Flank Pain Onset: Today Context: Sudden Onset Timing: Continuous Location: Left Flank Current Severity: Moderate Maximum Severity: Moderate Worsened by: Nothing Relieved by: Nothing Nausea/Vomiting/Emesis GI Symptom: Positive for Nausea Onset: Today Severity: Mild Diarrhea/Melena/Hematochezia GI Symptom: Negative for Diarrhea, Melena or Hematochezia Associated Symptoms Associated Symptoms: Negative for Dysuria, Frequency, Hematuria or Urgency Narrative Narrative: 58-year-old female history of prior kidney stone she has had to have them removed by scope before. Has not had any recently. This morning around 8 AM had left flank pain with associated nausea. No vomiting or diarrhea. No fever. Denies any dysuria or gross hematuria. Feels like her prior kidney stones. Prior similar symptoms: Yes Recent Illness/Hospitalization: No PFSH PFS Medical History (Updated 03/23/24 @ 13:[address] Hernando Pan MD) History of kidney stones Diverticulitis History of pneumonia Asthma Home Medications ?Medication ?Instructions ?Recorded ?Last Taken ?Type fish oil-dha-epa 1,200 mg-144 1 ea PO DAILY 07/20/18 Unknown History mg-216 mg capsule montelukast 10 mg tablet 10 mg PO DAILY 07/20/18 Unknown History fluticasone propionate 50 2 spray intranasal DAILY #16 grams 10/04/19 Unknown Rx mcg/actuation nasal spray,suspension lorazepam 1 mg tablet (Ativan) 1 mg PO Q4H PRN anxiety 10/04/19 Unknown History diclofenac sodium 75 mg 75 mg PO BID 03/23/24 Unknown History tablet,delayed release oxycodone-acetaminophen 5 mg-325 1 tab PO Q4H PRN pain 5 days #20 03/23/24 Unknown Rx mg tablet (Percocet) tabs simvastatin 80 mg tablet 80 mg PO DAILY 03/23/24 Unknown History venlafaxine 37.5 mg 37.5 mg PO DAILY 03/23/24 Unknown History capsule,extended release 24 hr Allergy/AdvReac Type Severity Reaction Status Date / Time No Known Allergies Allergy Verified 03/23/24 10:33 Family History Father COPD (chronic obstructive pulmonary disease) CHF (congestive heart failure) Rheumatoid arthritis Osteoarthritis Diverticulitis Ankylosing spondylitis Mother Hypertension Tremor Diverticulitis Surgical History Hx of nephrolithotomy with removal of calculi Nasal Polyp Removal Myringotomy tube status History of tubal ligation Social History Smoking Status: Never smoker second hand exposure: Yes ROS ROS ED ROS Narrative Left flank pain. Nausea. Review of Systems ROS Unobtainable: Denies due to encephalopathy Constitutional Constitutional ED: Denies chills or fever(s) ENT ENT ED: Denies ear pain Cardiovascular Cardiovascular: Denies chest pain Respiratory/Chest Respiratory/Chest: Denies cough or dyspnea Gastrointestinal Gastrointestinal: Reports abdominal pain and nausea; Denies constipation, diarrhea, melena or vomiting Genitourinary Genitourinary ED: Denies dysuria or hematuria Musculoskeletal Musculoskeletal: Denies arthralgias or back pain Integumentary Denies abscess or Abrasions Neurologic Neurologic: Denies headache(s) Psychiatric Psychiatric: Denies anxiety or depression Endocrine Endocrinology: Denies polydipsia, polyphagia or polyuria Hematologic/Lymphatic Hematologic/Lymphatic: Denies easy bleeding Allergic/Immunologic Allergic/Immunologic ED: Denies mouth swelling, tongue swelling or urticaria EXAM Physical Exam Narrative Exam Narrative: 58-year-old female complain left flank pain. Vital signs stable afebrile. HEENT exam unremarkable. Lungs clear. Heart regular rhythm rate about 70 no murmur. Chest wall and ribs nontender. Back nontender. Abdomen soft, nontender, nondistended normal bowel sounds no peritoneal signs. No reproducible abdominal pain. Moving all 4 extremities. Nontender no edema. Neurologically she is awake and alert no focal motor deficits. Const Vital Signs: 03/23/24 10:31 03/23/24 11:44 03/23/24 11:48 Temperature 96.9 F L 98.0 F Temperature Source Temporal Temporal Pulse Rate 67 54 L Respiratory Rate 14 16 Blood Pressure 151/94 H 144/95 H 144/95 H Blood Pressure Mean 113 111 111 Pulse Ox 98 100 Oxygen Delivery Method Room Air Room Air Positive well nourished and well developed; Negative for obese, cachectic, contractures or unkempt General Appearance ED: well developed and NAD; Negative for unkempt, cachectic, contractures or pallor Nutritional Appearance: Negative for cachectic or obese HEENT Reports moist mucous membranes; Denies dry mucous membranes normocephalic and atraumatic; Negative for trauma or tenderness Mouth ED: No dry mucous membranes Mouth: No dry mucous membranes Eyes PERRL and EOMs intact bilaterally General Eye ED: Negative for pale conjunctiva, scleral icterus or other Neck no lymphadenopathy, supple and no JVD General: Negative for tenderness Carotids: Negative for other Lymph Lymphatic: Negative for other Resp normal respiratory effort and clear to auscultation bilaterally Effort and Inspection: Negative for respiratory distress Auscultation: Negative for rales, rhonchi, wheezes or diminished lung sounds Cardio regular rate, regular rhythm, S1 normal heart sound, S2 normal heart sound and no murmurs Rate: Negative for bradycardia or tachycardic Rhythm: Negative for abnormal rhythm GI non-tender, non-distended and no masses Inspection: Negative for abdominal distention Auscultation: normoactive bowel sounds Palpation: soft; Negative for tender, guarding, hepatomegaly, splenomegaly, hernia, mass, pulsatile mass or rebound tenderness present Back/Spine no CVA tenderness General Back: Negative for CVA tenderness Cervical Spine: Negative for cervical spine tenderness Thoracic Spine / Upper Back: Negative for thoracic spinal tenderness Lumbar Spine / Lower Back: Negative for lumbar spinal tenderness Extremity full ROM General Extremety ED: Negative for edema or tenderness General Extremity: Negative for edema Neuro CN's II-XII intact bilaterally and moves all extremities Sensorium / Orientation: alert, oriented to person, oriented to place and oriented to time; Negative for orientation impaired, confused, lethargic or stuporous Motor Exam: strength 5/5 throughout Psych mental status grossly normal and thought process normal Appearance: Negative for unkempt Attitude: No agitated Mood & Affect: Negative for depressed, anxious or tearful Skin no wounds General Skin Exam: Negative for jaundice or pallor Lesions: no lesions Rashes: no rashes Trauma: Negative for abrasion Nails: Negative for discolored MDM MDM MDM Narrative Medical decision making narrative: 58-year-old female left flank pain with prior history of kidney stones. Clinically I suspect this to be a kidney stone. UA and chemistry panel. Treated with IV Toradol, morphine and Zofran. CT flank study without contrast. Repeat exam patient is doing well at 12:10 PM and 1 PM. She is having additional pain. So given her dose of morphine. We discussed her test results. Her and her are discussing whether she wants to be discharged home and outpatient follow-up or admission. She be given a dose of pain meds and reassess. History & Record Review Discussion w/independent historian: Patient and Family Additional record(s) reviewed:: Prior inpatient record, Prior outpatient record, Prior ED visit and Prior labs Lab Data Attestation: I reviewed the patient's lab results. Lab results narrative: Electrolytes unremarkable. Gap 4. BUN 19 creatinine 0.7. Glucose 111. Urinalysis shows 250 occult blood. No nitrites. 50-100 red cells. No white cells. No bacteria. Labs: Laboratory Results - last 24 hr 03/23/24 11:00 Sodium 141 Potassium 3.8 Chloride 112 H Carbon Dioxide 25.0 Anion Gap 4 L BUN 19 H Creatinine 0.77 Estim Creat Clear Calc 77.04 Est GFR (MDRD) Af Amer 99 Est GFR (MDRD) Non-Af 82 BUN/Creatinine Ratio 24.7 H Glucose 111 H Calcium 9.2 Urine Color Yellow Urine Clarity Sl. Cloudy Urine pH 6.0 Ur Specific [place] 1.020 Urine Protein 30 H Urine Glucose (UA) Normal Urine Ketones 5 H Urine Occult Blood 250 H Urine Nitrite Negative Urine Bilirubin Negative Urine Urobilinogen 1 H Ur Leukocyte Esterase 25 H Urine RBC 50-100 SEEN Urine WBC 0 SEEN Ur Squamous Epith Cells 0-5 SEEN Urine Bacteria 0 SEEN Urine Mucus 0 SEEN Radiography Diagnostic Testing: Clinical Impression(s) from Imaging Studies Abdomen/Pelvis CT 03/23/24 11:01 IMPRESSION: 1. Obstructive 7 mm left renal pelvis stone. 2. Diverticulosis coli. Electronically Signed: Kasi Macias MD at 12:26 EDT , Discharge Plan Triage Chief Complaint: Flank Pain ED Provider: Hernando Pan Dx/Rx/DC Orders Clinical Impression: Acute left flank pain, Kidney stone on left side Instructions: ED Kidney Stone with Pain Prescriptions: New oxycodone-acetaminophen [Percocet] 5-325 mg tablet 1 tab PO Q4H PRN (Reason: pain) 5 Days Qty: 20 0RF No Action lorazepam [Ativan] 1 mg tablet 1 mg PO Q4H PRN (Reason: anxiety) fluticasone propionate 50 mcg/actuation spray,suspension 2 spray INTRANASAL DAILY Qty: 16 3RF Rx Instructions: administer into each nostril montelukast 10 MG tablet 10 mg PO DAILY fish oil-dha-epa 1 EACH capsule 1 ea PO DAILY venlafaxine 37.5 mg capsule,extended release 24hr 37.5 mg PO DAILY simvastatin 80 mg tablet 80 mg PO DAILY diclofenac sodium 75 mg tablet,delayed release (DR/EC) 75 mg PO BID Primary Care Provider: Jacky Ramsey Referrals: Jacky Ramsey DO [Primary Care Provider] - Rigo Perez MD [Med Staff - Active Staff] - As soon as possible Activity Restrictions/Additional Instructions: Percocet and Motrin for pain. Plenty of fluids. Rest. I spoke to Dr. Khoi Perez the urologist. He is to call his office first thing Monday. Tell them that you were in the ER and that I spoke with him and he sitting itching to be seen on Monday and get you set up for surgery if needed. Return emergency department if intractable pain, fever or intractable vomiting. Or feeling worse. Print Language: Lao Disposition Disposition: Home, Self Care
[2024-03-23] MEDS: morphine 8 MG/ML Syringe IV (11:12)
[2024-03-23] MEDS: Ketorolac 30 MG/ML Syringe IV (11:12)
[2024-03-23] MEDS: Ondansetron 4 MG/2 ML Vial IV (11:12)
[2024-03-23 11:21] LABS: Bacteria 0 SEEN /hpf (None Seen); Mucous, Urine 0 SEEN /hpf (<or=2+); White Blood Cells 0 SEEN /hpf (0-5)
[2024-03-23 11:23] LABS: Color, Urine Yellow (Yellow); Glucose, Dipstick Normal (Normal); Ketone-Dipstick 5 mg/dl (Negative); Leukocyte Esterase-Dipstick 25 /ul (Negative); Nitrite-Dipstick Negative (Negative); Occult Blood-Urine 250 /ul (Negative); Protein-Dipstick 30 mg/dl (Negative); Urine Bilirubin Dipstick Negative (Negative); Urine Clarity Sl. Cloudy (Clear); Urine Urobilinogen 1 mg/dl (Normal)
[2024-03-23 11:36] LABS: Anion Gap 4 (5-15); BUN 19 mg/dL (7-18); BUN/Creat Ratio 24.7 RATIO (10-20); Calcium,Total 9.2 mg/dL (8.5-10.1); Chloride 112 mmol/L (98-107); Creatinine, Serum 0.77 mg/dL (0.55-1.02); EST Glomerular Filtration Rate 82 mL/min (>60); Est Glom Filt Rate - Afr Amer 99 mL/min (>60); Estimated Creatinine Clearance 77.04 ml/min; Glucose 111 mg/dL (74-106); Potassium 3.8 mmol/L (3.5-5.1); Sodium Level 141 mmol/L (136-145)
[2024-03-23 11:44] VITALS: BP 144/95; PULSE 54; RESP 16; TEMP 36.7; O2SAT 100
[2024-03-23 11:48] VITALS: BP 144/95
[2024-03-23 11:48] LABS: Red Blood Cells-Urine 50-100 SEEN /hpf (0-5); Squamous Epithelial Cells - UA 0-5 SEEN /hpf (5-10)
[2024-03-23] MEDS: morphine 8 MG/ML Syringe 6 MG IV (13:29)
== END 2024-03-23 14:02 | disposition home or self-care (01) ==
PROVIDERS: Emergency Provider Emergency Medicine; PCP Family Medicine; Visit Provider Emergency Medicine
DX: R10.9 Unspecified abdominal pain (principal); N20.0 Calculus of kidney; Z98.51 Tubal ligation status
CPT/HCPCS: 74176; 80048; 81001; 96374; 96375; 96376; 99283; A4216; J2405

== ENCOUNTER → 2024-06-11 | Outpatient (CLI) | payer OTHER, SELFPAY ==
--- NOTE | 2024-06-11 15:54 | CT_ITS ---
STUDY: CT ABDOMEN AND PELVIS WITH CONTRAST REASON FOR EXAM: Female, 58 years old. CALCULUS OF KIDNEY RADIATION DOSAGE (If Supplied By Facility): CTDIvol = ( 18.71 ) mGy, DLP = ( 872.49 ) mGycm TECHNIQUE: Transaxial images were obtained from the dome of the diaphragm to the symphysis pubis without oral contrast. IV 100mL Isovue-300 was administered. Sagittal and coronal images were reconstructed. Individualized dose optimization techniques were used for this CT. COMPARISON: Comparison is made with prior study dated March 23, 2024. FINDINGS: The visualized lung bases are unremarkable. The visualized portions of the heart are within normal limits. There is decreased attenuation of the liver consistent with steatosis. Normal gallbladder and extrahepatic biliary system. Normal spleen. Normal pancreas. Normal bilateral adrenal glands. Subcentimeter cyst in the lower pole of the right kidney. Normal left kidney. The previously seen 7 mm left renal pelvic calculus is not seen at this time. Stable 3.2 mm calcific density in the right mid abdomen adjacent to the right ureter. Normal visualized stomach. Normal small intestine. There are multiple colonic diverticula consistent with diverticulosis. The appendix is visualized and appears normal. Normal abdominal aorta. Normal inferior vena cava. Normal retroperitoneum. Normal urinary bladder. Normal abdominal wall. There are mild degenerative changes of the visualized lumbar spine. CT/Abdomen/Pelvis WITH Contrast IMPRESSION: The previously seen calculus in the left renal pelvis has cleared. Sigmoid diverticulosis. Fatty infiltration of the liver. Electronically Signed: Lazaro Luo MD at 9:00 EDT ,
== END | disposition home or self-care (01) ==
LOC: CT 15:50
PROVIDERS: PCP Family Medicine; Referring Provider Urology; Visit Provider Urology
DX: N20.0 Calculus of kidney (principal)
CPT/HCPCS: 74177; Q9967